=== PATIENT | male | born 1970 | race Caucasian/White ===

== ENCOUNTER 2024-11-20 17:06 | Emergency (ER) | payer BC, OTHER ==
[2024-11-20 17:24] VITALS: BMI 31.5
[2024-11-20 18:42] VITALS: BP 106/65; PULSE 85; RESP 19
[2024-11-20 19:02] LABS: VENOUS BASE EXCESS -0.7 mmol/L (-2-2); VENOUS O2 SATURATION 89.3 % (70-80); VENOUS PCO2 41.7 mmHg (38-52); VENOUS PH 7.384 (7.310-7.410)
[2024-11-20 19:03] LABS: ABSOLUTE IMMATURE GRANULOCYTES 0.03 x10^3/uL (0.0-0.031); BASOPHILS # 0.06 x10^3/uL (0.01-0.08); EOSINOPHIL % 0.5 % (0.8-7.0); EOSINOPHILS # 0.06 x10^3/uL (0.04-0.54); HEMATOCRIT 40.7 % (40.1-51.0); HEMOGLOBIN 13.2 g/dL (13.7-17.5); MCHC 32.4 g/dl (32.3-36.5); MEAN PLT VOLUME 10.6 fl (9.4-12.4); MONOCYTE # 0.98 x10^3/uL (0.30-0.82); MONOCYTE % 7.9 % (5.3-12.2); PLATELET COUNT 205 x10^3/uL (163-337); RDW 12.4 % (12.2-16.1)
[2024-11-20 19:06] LABS: INR 1.1 (0.83-1.09); PROTHROMBIN TIME (PATIENT) 12.1 SEC (9.7-13.0)
[2024-11-20 19:08] LABS: ACTIVATED PTT 31.8 SECONDS (25.2-36.5)
[2024-11-20 19:25] LABS: POTASSIUM 4.3 mmol/L (3.5-5.1)
[2024-11-20 19:28] LABS: CALCIUM 9.6 mg/dL (8.5-10.1)
[2024-11-20 19:29] LABS: ALBUMIN 4.2 g/dl (3.4-5.0); BLOOD UREA NITROGEN 19.9 mg/dL (7-18)
[2024-11-20 19:33] LABS: BILIRUBIN,TOTAL 0.4 mg/dL (0.2-1); TOT PROT 7.3 g/dl (6.4-8.2)
[2024-11-20 19:44] LABS: EPI CELLS 15 /uL (0-25.1); HYALINE CASTS 0 /uL (0-3.1); URINE APPEARANCE CLEAR; URINE BACTERIA 425 /uL (0-1359); URINE BILIRUBIN NEGATIVE (NEGATIVE); URINE COLOR YELLOW; URINE GLUCOSE (UA) NEGATIVE (NEGATIVE); URINE KETONE TRACE (NEGATIVE); URINE LEUK ESTERASE 1+ (NEGATIVE); URINE NITRITE NEGATIVE (NEGATIVE); URINE PROTEIN TRACE (NEGATIVE); URINE RBC 35 /uL (0-23.9); URINE WBC 53 /uL (0-25.8)
[2024-11-20] MEDS ORDERED: ACETAMINOPHEN INJECTION 100 ML ONE (20:17)
[2024-11-20] MEDS ORDERED: PIPERACILLIN/TAZOB 4.5 GM 4.5 GM/100 ML BAG IVPB ONE (20:17)
[2024-11-20 20:20] LABS: HCV DIAGNOSTIC IN-HOUSE W/RFLX NON-REACTIVE (NONREACTIVE); HIV INTERPRETATION NEGATIVE (NEGATIVE)
[2024-11-20] MEDS: PIPERACILLIN/TAZOBACTAM 4.5 GM VIAL IVPB ONE (20:25)
[2024-11-20] MEDS: SODIUM CHLORIDE 3,000 ML IV STA (20:26)
[2024-11-20] MEDS: SODIUM CHLORIDE 0.9% 1000 ML INFUS.BAG IV STA (20:26)
[2024-11-20] MEDS: ACETAMINOPHEN 1000 MG/100 ML BAG IVPB ONE (20:26)
[2024-11-20 23:01] VITALS: TEMP 98.1
[2024-11-20] MEDS: CIPROFLOXACIN 500 MG TABLET (RESTRICTED TO ID) PO ONE (23:01)
== END 2024-11-20 23:01 | disposition home or self-care (01) ==
LOC: JER 17:06
PROC: 3E033NZ Introduction of Analgesics, Hypnotics, Sedatives into Peripheral Vein, Percutaneous Approach (ICD-10-PCS; principal; 2024-11-20)
PROC: 3E03329 Introduction of Other Anti-infective into Peripheral Vein, Percutaneous Approach (ICD-10-PCS; 2024-11-20)
PROC: 3E0337Z Introduction of Electrolytic and Water Balance Substance into Peripheral Vein, Percutaneous Approach (ICD-10-PCS; 2024-11-20)
DX: N39.0 Urinary tract infection, site not specified (principal); N41.9 Inflammatory disease of prostate, unspecified; R50.9 Fever, unspecified; R00.0 Tachycardia, unspecified; R31.9 Hematuria, unspecified; R10.30 Lower abdominal pain, unspecified; N50.812 Left testicular pain
CPT/HCPCS: 0241U-QW; 36415; 71045-TC-FY; 74177-TC; 76870-TC; 80053; 81003; 82803; 83605; 84484; 85025; 85610; 85730; 86803; 86850; 86900; 86901; 87040; 87086; 87389; 93005; 93010; 99285-25; Q9967